=== PATIENT | male | born 1990 | race Caucasian/White ===

== ENCOUNTER 2017-08-30 09:25 | Emergency (ER) | payer OTHER ==
[~2017-08-30] VITALS: Ht 175.3 cm; Wt 95.3 kg
[~2017-08-30 09:25] MED LIST: ALPRAZOLAM0.5 MG PO; ANAPROX DS550 M1 PO; ATARAX10 MG PO; ATIVAN1 MG PO; BACTRIM,SEPT1 TABLET PO; CELEXA20 MG PO; CLEOCIN300 MG PO; CLINDAMYCIN HC150 MG PO; FIORICET 50-301 EACH PO; IBUPROFEN800 MG PO; LEXAPRO20 MG; LEXAPRO20 MG PO; MOTRIN600 MG PO; NAPROSYN500 MG PO; NOHOMEMEDS; PREDNISONE20 MG; TORADOL10 MG PO; ULTRAM50 MG PO; XANAX0.5 MG PO; ZITHROMAX Z-PA250 MG PO; ZOFRAN ODT8 MG PO; ZOLOFT25 MG PO; ZOLOFT50 MG PO; ZYRTEC10 MG
[2017-08-30] MEDS ORDERED: BENZACLIN GEL50 GM TP (10:45)
[2017-08-30] MEDS ORDERED: BACTRIM,SEPT1 TABLET PO (11:21)
[2017-08-30] MEDS ORDERED: KEFLEX500 MG PO (11:21)
[2017-08-30] MEDS ORDERED: ZOFRAN ODT4 MG PO (11:21)
[2017-08-30] MEDS ORDERED: TYLENOL WITH C1 EACH PO (11:23)
[2017-08-30 11:48] VITALS: BP 126/74
== END 2017-08-30 11:48 | disposition home or self-care (01) ==
LOC: EME 09:25
DX: L03.213 Periorbital cellulitis (principal); H00.035 Abscess of left lower eyelid; R11.0 Nausea; Z88.1 Allergy status to other antibiotic agents; F17.200 Nicotine dependence, unspecified, uncomplicated
CPT/HCPCS: 99281; 99284